=== PATIENT | male | born 1950 | race African-American/Black ===

== ENCOUNTER 2018-08-23 20:35 | Inpatient (IN) ==
[2018-08-23] MEDS ORDERED: Morphine Inj 4 MG/ML Vial IV.PUSH ONE (21:16)
[2018-08-23] MEDS ORDERED: Tetanus/Diphtheria Toxoid Adult Vaccine Inj 0.5 ML Vial IM ONE (21:37)
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
[2018-08-23 21:51] LABS: Baso # (Auto) 0.1 th/mm3 (0.0-0.2); Baso % (Auto) 1.2 % (0.0-2.0); Eos # (Auto) 0.3 th/mm3 (0.0-0.4); Hemoglobin 15.4 gm/dL (13.0-17.0); Lymph # (Auto) 4.3 th/mm3 (1.0-4.8); Lymph % (Auto) 39.3 % (9.0-44.0); Mean Corpuscular HGB Conc 35.9 % (32.0-36.0); Mean Corpuscular Hemoglobin 33.7 pg (27.0-34.0); Mean Platelet Volume 8.9 fL (7.0-11.0); Mono # (Auto) 1.3 th/mm3 (0.0-0.9); Mono % (Auto) 11.5 % (0.0-8.0); Neut # (Auto) 4.9 th/mm3 (1.8-7.7); Platelet Count 210 th/mm3 (150-450); Red Blood Count 4.58 mil/mm3 (4.50-5.90); Red Cell Distribution Width 13.2 % (11.6-17.2)
[2018-08-23 22:06] LABS: Activated Partial Thrombo Time 24.8 sec (24.3-30.1); INR 1.2 Ratio; Prothrombin Time 11.9 sec (9.8-11.6)
[2018-08-23 22:20] LABS: Calcium 9.1 mg/dL (8.5-10.1); Carbon Dioxide 23.1 meq/L (21.0-32.0)
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
[2018-08-23] MEDS: Sod Chloride 0.9% Inj 1,000 ML IV.SIG SCH ×3 (23:00→23:47)
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
[2018-08-24] MEDS: Sod Chloride 0.9% Inj 1,000 ML IV.SIG SCH (00:11)
[2018-08-24 00:43] LABS: CKMB Percent 1.6 % (0.0-4.0); Creatine Kinase MB 24.1 ng/mL (0.5-3.6)
[2018-08-24] MEDS ORDERED: Sodium Chlor 0.9% Inj 500 ML IV.SIG ONE (01:40)
[2018-08-24] MEDS ORDERED: HYDROmorphone PF Inj 2 MG/ML Vial IV.PUSH PRN (02:00)
[2018-08-24] MEDS ORDERED: Sod Chloride 0.9% Inj 1,000 ML IV.SIG ONE ×2 (02:00)
[2018-08-24] MEDS: Sod Chloride 0.9% Inj 1,000 ML IV.CONT SCH (02:12)
[2018-08-24 02:26] VITALS: RESP 18
[2018-08-24] MEDS: Docusate Sodium 100 MG Capsule PO SCH ×3 (02:32→21:02)
[2018-08-24] MEDS: Multivitamin Inj 10 ML, Thiamine Inj 100 MG, Folic Acid Inj 1 MG in Sodium Chlor 0.9% I... IV.SIG SCH (03:11)
[2018-08-24] MEDS: Pantoprazole Inj 40 MG Vial IV.PUSH SCH (03:11)
[2018-08-24] MEDS ORDERED: Chlorhexidine Gluconate 2% 1 Pack (2 Cloths) TOPICAL SCH (04:00)
[2018-08-24] MEDS ORDERED: Chlorhexidine Gluconate 2% 1 Pack (2 Cloths) TOPICAL PRN (04:00)
[2018-08-24 05:21] LABS: Calcium 7.7 mg/dL (8.5-10.1); Carbon Dioxide 25.2 meq/L (21.0-32.0)
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
[2018-08-24 12:38] LABS: CKMB Percent 1.4 % (0.0-4.0)
[2018-08-24] MEDS: Metoprolol Tartrate 25 MG Tablet PO SCH (15:56)
[2018-08-25] MEDS: Pantoprazole Inj 40 MG Vial IV.PUSH SCH (01:16)
[2018-08-25 01:21] VITALS: TEMP 97.8
[2018-08-25] MEDS: Multivitamin Inj 10 ML, Thiamine Inj 100 MG, Folic Acid Inj 1 MG in Sodium Chlor 0.9% I... IV.SIG SCH (01:22)
[2018-08-25] MEDS: Metoprolol Tartrate 25 MG Tablet PO SCH (04:13)
[2018-08-25 04:36] LABS: Baso # (Auto) 0.1 th/mm3 (0.0-0.2); Baso % (Auto) 1.1 % (0.0-2.0); Eos # (Auto) 0.3 th/mm3 (0.0-0.4); Eos % (Auto) 5.1 % (0.0-4.0); Hematocrit 38.7 % (39.0-51.0); Hemoglobin 13.4 gm/dL (13.0-17.0); Lymph # (Auto) 2.3 th/mm3 (1.0-4.8); Lymph % (Auto) 33.3 % (9.0-44.0); Mean Corpuscular HGB Conc 34.7 % (32.0-36.0); Mean Corpuscular Hemoglobin 32.8 pg (27.0-34.0); Mean Corpuscular Volume 94.7 fL (80.0-100.0); Mean Platelet Volume 8.7 fL (7.0-11.0); Mono # (Auto) 0.7 th/mm3 (0.0-0.9); Mono % (Auto) 10.6 % (0.0-8.0); Neut # (Auto) 3.4 th/mm3 (1.8-7.7); Neut % (Auto) 49.9 % (16.0-70.0); Platelet Count 154 th/mm3 (150-450); Red Blood Count 4.09 mil/mm3 (4.50-5.90); Red Cell Distribution Width 13.2 % (11.6-17.2); White Blood Count 6.8 th/mm3 (4.0-11.0)
[2018-08-25 05:01] LABS: Anion Gap 7 meq/L (5-15); Blood Urea Nitrogen 15 mg/dL (7-18); Calcium 7.8 mg/dL (8.5-10.1); Carbon Dioxide 24.4 meq/L (21.0-32.0); Chloride 107 meq/L (98-107); Creatine Kinase 601 U/L (39-308); Glomerular Filtration Rate Greater Than 89 mL/min (>89); Glucose,Random 124 mg/dL (74-106); Potassium 3.8 meq/L (3.5-5.1); Sodium 138 meq/L (136-145)
[2018-08-25 05:23] LABS: Creatine Kinase MB 5.9 ng/mL (0.5-3.6)
[2018-08-25] MEDS: Sod Chloride 0.9% Inj 1,000 ML IV.CONT SCH (07:51)
[2018-08-25 08:35] VITALS: BP 167/81; PULSE 65; O2SAT 97
[2018-08-25] MEDS: Docusate Sodium 100 MG Capsule PO SCH (09:13)
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
== END 2018-08-25 12:13 | disposition home or self-care (01) ==
LOC: NEPE 20:35 → NEDA 20:35 → N07 08-24 04:49
PROVIDERS: ADMIT Surgery; ATTEND Surgery